=== PATIENT | male | born 1950 | race Caucasian/White ===

== ENCOUNTER 2023-01-14 05:12 | Emergency (ER) | payer MEDICARE, OTHER ==
[~2023-01-14] VITALS: Ht 175.3 cm; Wt 100.0 kg
[2023-01-14] MEDS ORDERED: SYNTHROID25 MCG PO (05:33)
[2023-01-14] MEDS ORDERED: GLUCOTROL 5M5 MG/TAB PO (05:33)
[2023-01-14] MEDS ORDERED: NIACIN1 POW (05:34)
[2023-01-14] MEDS ORDERED: FARXIGA5 MG PO (05:34)
[2023-01-14] MEDS ORDERED: ASPIRIN 81M81 MG/TA2 PO (05:34)
[2023-01-14] MEDS ORDERED: JANUVIA25 MG PO (05:35)
[2023-01-14 06:03] LABS: HEMATOCRIT 48.4 % (42.0-52.0); HEMOGLOBIN 16.1 g/dL (13.5-18.0); MEAN CELL VOLUME 93 fl (78-100); MEAN CORPUSCULAR HEMOGLOBIN 31 pg (27-31); MEAN CORPUSCULAR HGB CONC 33 g/dL (33-37); MEAN PLATELET VOLUME 10.6 fl (7.4-10.4); PLATELET COUNT 90 K/mm3 (130-400); RED BLOOD COUNT 5.18 M/mm3 (4.20-5.60); WHITE BLOOD COUNT 5.7 K/mm3 (4.8-10.8)
[2023-01-14 06:12] LABS: ALBUMIN 4.1 g/dL (3.4-4.8); POTASSIUM 3.8 mmol/L (3.5-5.1)
[2023-01-14 06:13] LABS: CALCIUM 9.1 mg/dL (8.3-10.5)
[2023-01-14 06:14] LABS: TOTAL PROTEIN 6.4 g/dL (6.2-8.1)
[2023-01-14 06:16] LABS: TOTAL BILIRUBIN 1.4 mg/dL (0.2-1.2)
[2023-01-14 06:19] LABS: BAND 23 % (0-10); LYMPHOCYTE 8 % (20-51); MONOCYTE 9 % (3-10)
[2023-01-14 06:20] LABS: NEUTROPHILS 60 % (42-75)
[2023-01-14] MEDS ORDERED: ZOFRAN ODT4 MG PO (06:51)
[2023-01-14 07:29] VITALS: BP 136/71
== END 2023-01-14 07:35 | disposition home or self-care (01) ==
LOC: ED 05:12
PROVIDERS: Family Medicine
DX: R11.2 Nausea with vomiting, unspecified (principal); I12.9 Hypertensive chronic kidney disease with stage 1 through stage 4 chronic kidney disease, or unspecified chronic kidney disease; E11.22 Type 2 diabetes mellitus with diabetic chronic kidney disease; N18.9 Chronic kidney disease, unspecified
CPT/HCPCS: J2405; J7030